=== PATIENT | male | born 1965 | race African-American/Black ===

== ENCOUNTER 2017-06-01 08:08 | Emergency (ER) | payer OTHER ==
[~2017-06-01] VITALS: Ht 188 cm; Wt 90.7 kg
[~2017-06-01 08:08] MED LIST: MIRT15 PO; Toprol Xl50 MG PO; Vistaril25 MG PO
[2017-06-01] MEDS ORDERED: HYDPAM50 PO (10:02)
[2018-01-26] MEDS ORDERED: METO50ER PO (03:18)
[2018-01-26] MEDS ORDERED: MIRT15 PO (03:18)
[2018-01-26] MEDS ORDERED: Hydroxyzine HCl50 MG PO (03:19)
== END 2017-06-01 10:26 | disposition home or self-care (01) ==
LOC: ER 08:08
DX: L29.9 Pruritus, unspecified (principal); F20.9 Schizophrenia, unspecified; I10 Essential (primary) hypertension; Z79.899 Other long term (current) drug therapy
CPT/HCPCS: 99283

== ENCOUNTER → 2017-06-03 | Outpatient (CLI) | payer OTHER ==
[~2017-06-03] MED LIST changes: +HYDPAM50 PO; +Hydroxyzine HCl50 MG PO; +METO50ER PO
[2017-06-03 09:05] LABS: BASOPHILS ABSOLUTE AUTO 0.05 K/mm3 (0.00-0.23); BASOPHILS PERCENT AUTO 1 % (0-2); EOSINOPHILS ABSOLUTE AUTO 0.18 K/mm3 (0.00-0.68); EOSINOPHILS PERCENT AUTO 3 % (0-6); Hematocrit 41.1 % (37.0-53.0); Hemoglobin 13.7 g/dL (13.5-17.5); IMMATURE GRAN ABSOLUTE AUTO 0.02 K/mm3 (0.00-0.10); IMMATURE GRAN PERCENT AUTO 0 % (0-1); LYMPHOCYTES ABSOLUTE AUTO 1.67 K/mm3 (0.84-5.20); LYMPHOCYTES PERCENT AUTO 32 % (21-46); MONOCYTES ABSOLUTE AUTO 0.45 K/mm3 (0.16-1.47); MONOCYTES PERCENT AUTO 9 % (4-13); Mean Corpuscular HGB 31.9 pg (26.0-34.0); Mean Corpuscular HGB Conc 33.3 g/dL (31.5-36.5); Mean Corpuscular Volume 96 fL (80-100); NEUTROPHILS ABSOLUTE AUTO 2.89 K/mm3 (1.96-9.15); NEUTROPHILS PERCENT AUTO 55 % (41-73); Platelet Count 350 K/mm3 (150-400); RDW Standard Deviation 41.6 fL (35.1-46.3); White Blood Cell Count 5.26 K/mm3 (4.00-11.30)
[2017-06-03 09:25] LABS: Alanine Aminotransfer (ALT/SGP 41 U/L (12-78); Albumin, Blood 3.6 g/dL (3.4-5.0); Albumin/Globulin Ratio 0.8 (0.8-1.8); Alk Phos 125 U/L (40-126); Anion Gap 6 mmol/L (6-16); Aspartate Aminotrans (AST/SGOT 26 U/L (12-37); Bilirubin, Total 0.2 mg/dL (0.1-1.0); Blood Urea Nitrogen 10 mg/dL (8-24); Bun/Creatinine Ratio 9.1 (12.0-20.0); CO2, Blood 29 mmol/L (21-32); Calcium, Blood 8.8 mg/dL (8.5-10.1); Chloride, Blood 102 mmol/L (98-108); Globulin, Blood 4.5 g/dL (2.2-4.0); Glomerular Filtration Rate >60 (60-); Glucose, Blood 99 mg/dL (70-99); Sodium, Blood 137 mmol/L (136-145); Thyroid Stimulating Hormone 1.433 uIU/mL (0.360-4.800); Total Protein, Blood 8.1 g/dL (6.4-8.2)
== END | disposition home or self-care (01) ==
LOC: LAB EV 09:01
PROVIDERS: Physician Assistant
DX: R53.83 Other fatigue (principal)
CPT/HCPCS: 80053; 84443; 85025

== ENCOUNTER → 2017-06-14 | Outpatient (CLI) | payer OTHER ==
[~2017-06-14] MED LIST changes: -Hydroxyzine HCl50 MG PO; -METO50ER PO
[2017-06-14 08:43] LABS: Specimen Source URINE
[2017-06-15 01:25] LABS: Source Urine
== END ==
LOC: LAB 08:40 → LAB SHORT 08:40
PROVIDERS: Family Medicine
DX: R30.0 Dysuria (principal)
CPT/HCPCS: 87491; 87591